=== PATIENT | male | born 1965 ===

== ENCOUNTER 2024-03-27 05:30 | Day surgery (SDC) | payer OTHER ==
[2024-03-22 10:32] VITALS: BP 150/90
[2024-03-22 11:02] LABS: ALBUMIN 3.9 gm/dL (3.4-5.0); BILIRUBIN TOTAL 0.62 mg/dL (0.3-1.2); CALCIUM 9.3 mg/dL (8.5-10.1); CREATININE SERUM 1.08 mg/dL (0.70-1.30); GFR 69.74; GLOBULINA 3.6 G/DL (2.4-3.5); POTASSIUM 4.19 mEq/L (3.5-5.1); TOTAL PROTEIN 7.5 gm/dL (6.4-8.2)
[2024-03-22 11:09] LABS: INR 1.08; PARTIAL THROMBOPLASTIN TIME 30.8 SECONDS (22.0-34.0); PROTHROMBIN TIME 11.7 SECONDS (9.0-11.5)
[~2024-03-27] VITALS: Ht 177.8 cm; Wt 77.1 kg
[2024-03-27] MEDS ORDERED: DEXAMETHASONE 4 MG TABLET PO ONE (08:30)
[2024-03-27] MEDS ORDERED: CEFAZOLIN SODIUM 1,000 MG VIAL IV ONE (08:30)
== END 2024-03-27 11:20 | disposition home or self-care (01) ==
LOC: CIR.AMB 05:30
PROVIDERS: ATTEND Otolaryngology
DX: K11.23 Chronic sialoadenitis (principal); K11.8 Other diseases of salivary glands